=== PATIENT | female | born 1955 | race Caucasian/White ===

== ENCOUNTER 2021-04-11 09:36 | Outpatient (CLI) | payer MEDICARE | END 2021-04-11 09:37 | disposition home or self-care (01) | LOC: BICRAD 09:36 | PROVIDERS: ATTEND Internal Medicine | DX: J18.9 Pneumonia, unspecified organism (principal) | CPT/HCPCS: 36415; 71046; 80053; 85025 ==

== ENCOUNTER 2021-05-14 10:40 | Outpatient (CLI) | payer MEDICARE | END 2021-05-14 10:41 | disposition home or self-care (01) | LOC: BICRAD 10:40 | PROVIDERS: ATTEND Internal Medicine | DX: M79.672 Pain in left foot (principal); S92.512A Displaced fracture of proximal phalanx of left lesser toe(s), initial encounter for closed fracture ==

== ENCOUNTER 2021-05-28 16:22 | Outpatient (CLI) | payer MEDICARE | END 2021-05-28 16:23 | disposition home or self-care (01) | LOC: BICCT 16:22 | PROVIDERS: ATTEND Internal Medicine | DX: Z12.2 Encounter for screening for malignant neoplasm of respiratory organs (principal); F17.210 Nicotine dependence, cigarettes, uncomplicated; R91.8 Other nonspecific abnormal finding of lung field; R59.0 Localized enlarged lymph nodes | CPT/HCPCS: 71271 ==

== ENCOUNTER 2021-06-03 17:00 | Outpatient (CLI) | payer MEDICARE | END 2021-06-03 17:01 | disposition home or self-care (01) | LOC: SLEEPLAB 17:00 | PROVIDERS: ATTEND Internal Medicine | DX: G47.33 Obstructive sleep apnea (adult) (pediatric) (principal); R06.83 Snoring; G47.00 Insomnia, unspecified; R35.1 Nocturia; I10 Essential (primary) hypertension | CPT/HCPCS: 95806 ==

== ENCOUNTER 2021-06-05 09:49 | Outpatient (CLI) | payer MEDICARE | END 2021-06-05 09:50 | disposition home or self-care (01) | LOC: BICMAMMO 09:49 | PROVIDERS: ATTEND Internal Medicine | DX: Z13.820 Encounter for screening for osteoporosis (principal); Z78.0 Asymptomatic menopausal state; M85.851 Other specified disorders of bone density and structure, right thigh; M85.852 Other specified disorders of bone density and structure, left thigh | CPT/HCPCS: 77080 ==

== ENCOUNTER 2021-09-13 06:34 | Emergency (ER) | payer MEDICARE | END 2021-09-13 09:20 | disposition home or self-care (01) | LOC: ERS 06:34 | DX: S82.54XA Nondisplaced fracture of medial malleolus of right tibia, initial encounter for closed fracture (principal); I10 Essential (primary) hypertension; E03.9 Hypothyroidism, unspecified; F17.210 Nicotine dependence, cigarettes, uncomplicated; W07.XXXA Fall from chair, initial encounter | CPT/HCPCS: 29515 ==

== ENCOUNTER 2022-06-03 09:32 | Outpatient (CLI) | payer OTHER | END 2022-06-03 09:33 | disposition home or self-care (01) | LOC: BICCT 09:32 | PROVIDERS: ATTEND Internal Medicine | DX: Z12.2 Encounter for screening for malignant neoplasm of respiratory organs (principal); F17.210 Nicotine dependence, cigarettes, uncomplicated; M79.671 Pain in right foot; M77.31 Calcaneal spur, right foot | CPT/HCPCS: 71271 ==

== ENCOUNTER 2023-06-24 08:06 | Outpatient (CLI) | payer OTHER | END 2023-06-24 08:07 | disposition home or self-care (01) | LOC: CT 08:06 | PROVIDERS: ATTEND Internal Medicine | DX: Z12.2 Encounter for screening for malignant neoplasm of respiratory organs (principal); R51.9 Headache, unspecified; H74.92 Unspecified disorder of left middle ear and mastoid; J34.89 Other specified disorders of nose and nasal sinuses; R92.1 Mammographic calcification found on diagnostic imaging of breast; R90.89 Other abnormal findings on diagnostic imaging of central nervous system; Z87.891 Personal history of nicotine dependence | CPT/HCPCS: 70551; 71271 ==

== ENCOUNTER 2025-06-30 12:20 | Outpatient (CLI) | payer OTHER, SELFPAY | END 2025-06-30 12:21 | disposition home or self-care (01) | LOC: BICCT 12:20 | PROVIDERS: ATTEND Internal Medicine | DX: Z13.6 Encounter for screening for cardiovascular disorders (principal); I25.10 Atherosclerotic heart disease of native coronary artery without angina pectoris | CPT/HCPCS: 75571 ==

== ENCOUNTER 2025-07-14 12:01 | Outpatient (CLI) | payer MEDICARE | END 2025-07-14 12:02 | disposition home or self-care (01) | LOC: BICMAMMO 12:01 | PROVIDERS: ATTEND Internal Medicine | DX: Z12.31 Encounter for screening mammogram for malignant neoplasm of breast (principal); Z13.820 Encounter for screening for osteoporosis; Z78.0 Asymptomatic menopausal state; M85.851 Other specified disorders of bone density and structure, right thigh; M85.852 Other specified disorders of bone density and structure, left thigh | CPT/HCPCS: 77063; 77067; 77080 ==